=== PATIENT | female | born 1960 | race Caucasian/White ===

== ENCOUNTER 2023-09-13 11:02 | Outpatient (CLI) | payer OTHER, SELFPAY ==
[~2023-09-13 11:02] MED LIST: ESTR8.1S TOP; LEVO100T PO; MULT-620 PO; PROBIOTIC PO; PROG200C37 PO; VITAMIN D PO
== END 2023-09-13 23:59 | disposition home or self-care (01) ==
LOC: MRI 11:02
PROVIDERS: ATTEND Nurse Practitioner Family
DX: M51.37 Other intervertebral disc degeneration, lumbosacral region (principal); M47.816 Spondylosis without myelopathy or radiculopathy, lumbar region; M54.50 Low back pain, unspecified; M51.45 Schmorl's nodes, thoracolumbar region
CPT/HCPCS: 72148